=== PATIENT | female | born 1955 | race African-American/Black ===

== ENCOUNTER 2019-10-01 08:49 | Emergency (ER) | payer MEDICARE ==
--- NOTE | 2019-10-01 09:13 | ER Document Report ---
ED Respiratory Problem - General Chief Complaint: Shortness Of Breath Stated Complaint: SHORTNESS OF BREATH Time Seen by Provider: 10/01/19 09:12 Notes: CHIEF COMPLAINT: Shortness of breath today HPI: 64-year-old female with a history of CHF and type 1 diabetes presenting for shortness of breath today. Patient is visiting from out of town, states she left her Lasix at home has been taking her insulin. She has been out of her Lasix for 3 days and now feels like her heart failure is starting to act up. No chest pain. Patient states she normally takes Lasix 40 mg daily. No abdominal pain nausea vomiting or fever. ROS: See HPI - all other systems were reviewed and are otherwise negative Constitutional: no fever Eyes: no drainage, no blurred vision ENT: no runny nose, no sore throat Cardiovascular: no chest pain Resp: + SOB, no cough GI: no vomiting, no diarrhea, no abdominal pain : no dysuria Integumentary: no rash Allergy: no hives Musculoskeletal: no extremity pain, positive swelling Neurological: no numbness/tingling, no weakness MEDICATIONS: I agree with the patient medications as charted by the RN. ALLERGIES: I agree with the allergies as charted by the RN. PAST MEDICAL HISTORY/PAST SURGICAL HISTORY: Reviewed and agree as charted by RN. SOCIAL HISTORY: Reviewed and agree as charted by RN. FAMILY HISTORY: No significant familial comorbid conditions directly related to patient complaint EXAM: Reviewed vital signs as charted by RN. CONSTITUTIONAL: Alert and oriented and responds appropriately to questions. Well-appearing; well-nourished, mild distress secondary to shortness of breath HEAD: Normocephalic; atraumatic EYES: PERRL; Conjunctivae clear, sclerae non-icteric ENT: normal nose; no rhinorrhea; moist mucous membranes; pharynx without lesions noted, no uvula edema or deviation, no tonsillar hypertrophy, phonation normal NECK: Supple without meningismus; non-tender; no cervical lymphadenopathy, no masses CARD: RRR; no murmurs, no clicks, no rubs, no gallops; symmetric distal pulses RESP: Normal chest excursion without splinting or tachypnea; breath sounds clear and equal bilaterally; no wheezes, no rhonchi, no rales, pulse oximetry 97% on room air not hypoxic ABD/GI: Morbidly obese, normal bowel sounds; non-distended; soft, non-tender, no rebound, no guarding; no palpable organomegaly or masses. BACK: The back appears normal and is non-tender to palpation, there is no CVA tenderness EXT: Normal ROM in all joints; non-tender to palpation; no cyanosis, no effusions, 1+ bilateral ankle edema SKIN: Normal color for age and race; warm; dry; good turgor; no acute lesions noted NEURO: Moves all extremities equally; Motor and sensory function intact PSYCH: The patient's mood and manner are appropriate. Grooming and personal hygiene are appropriate. MDM: 64-year-old female with CHF history out of her Lasix for 3 days. Will check baseline screening labs including cardiac labs. Will give patient IV Lasix and reassess Past Medical History - Social History Smoking Status: Unknown if Ever Smoked Family History: Reviewed & Not Pertinent Physical Exam - Vital signs Vitals: Temp Pulse Resp BP Pulse Ox 98.1 F 89 26 H 194/95 H 96 10/01/19 08:50 10/01/19 08:50 10/01/19 08:50 10/01/19 08:50 10/01/19 08:50 Course - Re-evaluation Re-evalutation: 10/01/19 10:[address] Osullivan, Attending. BNP is greater than 5000. I discussed this with the patient. I did offer admission she would like to go home. She will be in town for another 3 to 4 days I will write her for a weeks worth of Lasix. We will also place patient on 3 days of Zaroxolyn. Patient knows that she can return if she has any worsening shortness of breath. - Vital Signs Vital signs: Temp Pulse Resp BP Pulse Ox 98.1 F 89 19 170/89 H 96 10/01/19 08:50 10/01/19 08:50 10/01/19 10:01 10/01/19 10:01 10/01/19 10:01 - Laboratory Result Diagrams: 10/01/19 09:35 10/01/19 09:35 Laboratory results interpreted by me: 10/01/19 10/01/19 10/01/19 09:35 09:35 09:35 RDW 15.3 H Carbon Dioxide 31 H Est GFR (MDRD) Non-Af 57 L Glucose 223 H AST 39 H NT-Pro-B Natriuret Pep 5100 H Discharge - Discharge Clinical Impression: Acute exacerbation of CHF (congestive heart failure) Qualifiers: Heart failure type: unspecified Qualified Code(s): I50.9 - Heart failure, un specified Condition: Stable Disposition: HOME, SELF-CARE Additional Instructions: Take the medications as prescribed. Return for worsening shortness of breath or edema Prescriptions: Furosemide [Lasix 40 mg Tablet] 40 mg PO QAM #15 tablet Metolazone [Zaroxolyn 5 Mg Tablet] 5 mg PO QAM #3 tablet
[2019-10-01] MEDS ORDERED: FUROSEMIDE INJ/PF 20 MG/2 ML SDV IV ONE (09:29)
[2019-10-01 09:50] LABS: ABSOLUTE LYMPHOCYTES (AUTO) 1.4 10^3/uL (0.5-4.7); ABSOLUTE MONOCYTES (AUTO) 0.5 10^3/uL (0.1-1.4); BASOPHILS % (AUTO) 0.4 % (0-2); EOSINOPHILS % (AUTO) 0.8 % (0-6); HEMATOCRIT 36.7 % (36.0-47.0); LYMPHOCYTES % (AUTO) 28.2 % (13-45); MEAN CORPUSCULAR HEMOGLOBIN 27.6 pg (27.0-33.4); MEAN CORPUSCULAR HGB CONC 32.7 g/dL (32.0-36.0); MEAN CORPUSCULAR VOLUME 84 fl (80-97); MONOCYTES % (AUTO) 10.2 % (3-13); PLATELET COUNT 177 10^3/uL (150-450); RED BLOOD COUNT 4.35 10^6/uL (3.72-5.28); RED CELL DISTRIBUTION WIDTH 15.3 % (11.5-14.0); SEGMENTED NEUTROPHILS % (AUTO) 60.4 % (42-78); TOTAL CELLS COUNTED % (AUTO) 100 %; WHITE BLOOD COUNT 4.9 10^3/uL (4.0-10.5)
[2019-10-01 10:05] LABS: ALBUMIN 3.8 g/dL (3.5-5.0); ALKALINE PHOSPHATASE 70 U/L (38-126); ANION GAP 6 (5-19); ASPARTATE AMINO TRANSFERASE 39 U/L (14-36); BILIRUBIN,DIRECT 0.3 mg/dL (0.0-0.4); BILIRUBIN,TOTAL 0.6 mg/dL (0.2-1.3); BLOOD UREA NITROGEN 19 mg/dL (7-20); CALCIUM 8.8 mg/dL (8.4-10.2); CARBON DIOXIDE 31 mmol/L (22-30); CHLORIDE 105 mmol/L (98-107); GLUCOSE 223 mg/dL (75-110); POTASSIUM 4.6 mmol/L (3.6-5.0); TOTAL PROTEIN 7.3 g/dL (6.3-8.2)
[2019-10-01 10:12] VITALS: BP 170/89
[2019-10-01 10:22] LABS: NT PRO BNP 5100 pg/mL (<125)
[2019-10-01 10:23] LABS: TROPONIN I < 0.012 ng/mL
--- NOTE | 2019-10-01 10:33 | RADIOLOGY REPORT (SQ) ---
EXAM DESCRIPTION: CHEST 2 VIEWS COMPLETED DATE/TIME: 10/01/2019 10:15 am REASON FOR STUDY: sob COMPARISON: None. NUMBER OF VIEWS: Two view. TECHNIQUE: Frontal and lateral radiographic views of the chest acquired. LIMITATIONS: None. FINDINGS: LUNGS AND PLEURA: No opacities, masses or pneumothorax. No pleural effusion. MEDIASTINUM AND HILAR STRUCTURES: No masses. No contour abnormalities. HEART AND VASCULAR STRUCTURES: Heart enlarged without failure. Aorta normal for age. BONES: No acute findings. HARDWARE: None in the chest. OTHER: No other significant finding. IMPRESSION: CARDIAC ENLARGEMENT WITHOUT FAILURE. TECHNICAL DOCUMENTATION: JOB ID: [id number] 2010 [employer]- All Rights Reserved Reading location - IP/workstation name: [email or web address]
--- NOTE | 2019-10-03 00:43 | EKG REPORT ---
SEVERITY:- ABNORMAL ECG - SINUS RHYTHM PROBABLE LEFT ATRIAL ABNORMALITY PROBABLE LEFT VENTRICULAR HYPERTROPHY NONSPECIFIC T ABNORMALITIES, INFERIOR LEADS : Confirmed by: Axel De La O 03-Oct-2019 00:42:24
== END 2019-10-01 11:22 | disposition home or self-care (01) ==
LOC: ER 08:49
DX: I50.9 Heart failure, unspecified (principal); T50.1X6A Underdosing of loop [high-ceiling] diuretics, initial encounter; Z91.128 Patient's intentional underdosing of medication regimen for other reason; Z91.14 Patient's other noncompliance with medication regimen; R06.02 Shortness of breath; E10.9 Type 1 diabetes mellitus without complications; Z79.4 Long term (current) use of insulin
CPT/HCPCS: 93005; 99282; 96374; 36415; 85025; 80053; 84484; 83880; 71046; 93010; J1940